=== PATIENT | male | born 1995 | race Caucasian/White ===

== ENCOUNTER 2020-11-07 07:52 | Emergency (ER) | payer BC ==
--- NOTE | 2020-11-07 08:00 | EDM.PDOC ---
ED HPI GENERAL MEDICAL PROBLEM - General Stated Complaint: SHORTNESS OF BREATH, COUGHING Time Seen by Provider: 11/07/20 07:54 - History of Present Illness INITIAL COMMENTS - FREE TEXT/NARRATIVE: History of present illness: [] This patient has 3 to 4 days of symptoms including cough sore throat sinus congestion runny nose and tightness in his chest when he tries to breathe. When he coughs it is a dry cough and he does not feel like there is anything in his chest. The patient is unvaccinated for COVID-19 and his roommates have similar symptoms. He does smoke but he has no history of diabetes bronchitis COPD asthma or heart disease. This patient was seen and evaluated during the 2019 SARS-CoV-2 novel coronavirus pandemic period. Community viral transmission is ongoing at time of this encounter and the emergency department is operating under pandemic response procedures. 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 When they come to [place] they stay in the same complex. They feel the symptoms increasing each time they come the wellness on a feel healthy when her back in her home state. They recently cleaned the air conditioning filter because they had a delay in getting response from the landlord to do so. They said the filter itself was quite covered in mold. When confronted with the situation with a house full of people with symptoms I asked about car fumes exhaust fumes heat or any other kind of sources of possible carbon monoxide and patient felt certain there was no exposure. Review of systems: As per history of present illness and below otherwise all systems reviewed and negative. Past medical history: As per history of present illness and as reviewed below otherwise noncontributory. Surgical history: As per history of present illness and as reviewed below otherwise noncontributory. Social history: No reported history of drug or alcohol abuse. Family history: As per history of present illness and as reviewed below otherwise noncontributory. Physical exam: Constitutional - well developed, well-nourished and in no acute distress HEENT - normocephalic, no evidence of trauma - external nose and mouth normal - no mass in neck and no JVD - mucosae moist EYES - full EOM, PERRL, no icterus - no evidence of inflammation, injection, or drainage Respiratory - no respiratory distress, equal bilateral expansion, lungs diminished to auscultation with wheezes in the bases. Patient has a bothersome cough that at times interferes with his conversation. Oxygen saturations 96%- normal Cardiovascular - Regular Rhythm with S1 and S2 appreciated and no murmur, gallop or rub. GI - abdomen soft without distension or organomegaly - normal bowel sounds - no guard or rebound Musculoskeletal no gross deformity of long bones or joints - no tenderness, swelling or edema Neurologic - Alert and oriented times four - CN II-XII grossly intact - motor sensory and coordination symmetrically normal Psychiatric - appropriate mood and affect with normal thought content Hematologic - No petechiae or purpura - mucosa appropriate color and sclera not pale - normal nail bed color and refill Integument - no rash or evidence of trauma - normal turgor Diagnostics: [] Therapeutics: [] Impression: [] Plan: [] Definitive disposition and diagnosis as appropriate pending reevaluation and review of above. Chest Pain Score (Numeric/FACES): 4 - Related Data Allergies Allergy/AdvReac Type Severity Reaction Status Date / Time No Known Allergies Allergy Verified 11/07/20 08:01 Home Meds: Home Meds Benzonatate 200 mg PO TID PRN #15 capsule 11/07/20 [Rx] predniSONE [Prednisone] 60 mg PO DAILY 5 Days #15 tablet 11/07/20 [Rx] ED ROS GENERAL - Review of Systems Review Of Systems: Comprehensive ROS is negative, except as noted in HPI. ED EXAM, GENERAL - Physical Exam Exam: See Below Free Text/Narrative:: My physical exam is in the HPI #1 Interpretation EKG Interpretation Comments: EKG done 6 11/07/2020 at 7:52 AM sinus rhythm with a heart rate of 91 SC interval 161 QT duration 426 [place] 98 borderline right axis deviation otherwise normal QRS ST and T. Impression essentially normal EKG Course - Vital Signs Text/Narrative:: 9:06 AM the COVID-19 test results are negative. The radiologist read the x-ray is negative as well. I will have the patient increase fluids and place the patient on steroids and Tessalon Perles. Patient is a little short of breath even at rest so I will try an inhaler and see if he improves. Differential diagnosis does include some sort of environmental response which may be shared however if it was actually mold causing the symptoms I felt there would be of more variability in the symptoms amongst the gentleman because those with allergy to the substance would be more symptomatic than those without. However instructed the patient that if he finishes course of steroids and then immediately got worse they should do further investigation and get further advice about environmental factors. After 2 puffs of the albuterol inhaler with a spacer he felt better and was able to talk tolerate walking about getting out of breath without any wheeze or cough. Last Recorded V/S: Last Vital Signs Temp 36.6 C 11/07/20 08:01 Pulse 86 11/07/20 08:01 Resp 18 11/07/20 08:01 BP 147/85 H 11/07/20 08:01 Pulse Ox 96 11/07/20 08:01 - Orders/Labs/Meds Orders: Active Orders 24 hr Category Date Time Status EKG Documentation Completion [RC] AM Care 11/07/20 08:00 Active Labs: Laboratory Tests 11/07/20 Range/Units 08:07 SARS-CoV-2 RNA (JEAN MARIE) NEGATIVE (NEGATIVE) Departure - Departure Time of Disposition: 09:35 Disposition: Home, Self-Care 01 Condition: Good Clinical Impression: Acute bronchitis - Discharge Information Instructions: Acute Bronchitis, Adult, [id number] Additional Instructions: Use inhaler no more than every 4 hours. 2 puffs using the spacer chamber should be sufficient to improve your breathing. Drinking plenty of fluids is just as important as taking the inhaler and the cough medicine. [facility] - Primary Care [address] [place] [address] [place] [address] The following information is given to patients seen in the emergency department who are being discharged to home. This information is to outline your options for follow-up care. We provide all patients seen in our emergency department with a follow-up referral. The need for follow-up, as well as the timing and circumstances, are variable depending upon the specifics of your emergency department visit. If you don't have a primary care physician on staff, we will provide you with a referral. We always advise you to contact your personal physician following an emergency department visit to inform them of the circumstance of the visit and for follow-up with them and/or the need for any referrals to a consulting specialist. The emergency department will also refer you to a specialist when appropriate. This referral assures that you have the opportunity for follow-up care with a specialist. All of these measure are taken in an effort to provide you with optimal care, which includes your follow-up. Under all circumstances we always encourage you to contact your private physician who remains a resource for coordinating your care. When calling for follow-up care, please make the office aware that this follow-up is from your recent emergency room visit. If for any reason you are refused follow-up, please contact the Emergency Department at and asked to speak to the emergency department charge nurse. Sepsis Event Note (ED) - Focused Exam Vital Signs: Vital Signs Temp Pulse Resp BP Pulse Ox 11/07/20 08:01 36.6 C 86 18 147/85 H 96 - My Orders Last 24 Hours: My Active Orders 11/07/20 08:00 EKG Documentation Completion [RC] AM - Assessment/Plan Last 24 Hours: My Active Orders 11/07/20 08:00 EKG Documentation Completion [RC] AM
--- NOTE | 2020-11-07 08:37 | CR ---
INDICATION: Cough for 3 days. TECHNIQUE: Chest 1 view. COMPARISON: None FINDINGS: Cardiovascular and mediastinum: Heart size and vasculature are normal in caliber and appearance. Mediastinum is within normal limits. Lungs and pleural space: Lungs are clear. No sign of infiltrate or mass. No sign of pleural effusion. No pneumothorax. Bones and soft tissues: No significant findings. IMPRESSION: Unremarkable chest. Dictated by Theodore John MD @ 11/07/2020 8:36:[address] Theodore John @ Nov 07 2020 8:36AM
[2020-11-07] MEDS ORDERED: Albuterol 8 GM Inhaler INH STA (09:09)
[2020-11-07] MEDS ORDERED: predniSONE 20 MG Tab ONE (09:12)
[2020-11-07] MEDS ORDERED: predniSONE 20 MG Tab PO ONE (09:12)
== END 2020-11-07 09:30 | disposition home or self-care (01) ==
LOC: MW.ED 07:52
DX: J20.9 Acute bronchitis, unspecified (principal); Z20.822 Contact with and (suspected) exposure to COVID-19
CPT/HCPCS: 71045; 87635; 93005; 99284; A9270; U0002